=== PATIENT | female | born 1955 | race Caucasian/White ===

== ENCOUNTER 2017-03-17 18:46 | Emergency (ER) | payer OTHER ==
[2017-03-17 18:53] VITALS: RESP 18
--- NOTE | 2017-03-17 20:47 | EDPHY ---
H & P Time Seen by Provider: 03/17/17 20:19 HPI/ROS: CHIEF COMPLAINT: Dental pain, sore throat HISTORY OF PRESENT ILLNESS: This is a 61-year-old female presenting to the emergency department complaining of fatigue fever sore throat. Patient states she had a wisdom tooth extracted on day was also told she had a dental infection but no antibiotics were prescribed. Patient said she was feeling fine throughout the weekend just some dental pain but then early this morning she noticed she was running a fever with sore throat and right ear pain. 400 mg of ibuprofen at 1330 resolve the fever and some mild pain, ibuprofen 400 mg at 1630 which helped resolve some fever and pain. Rechecked temperature 37.5 oral. Patient states biggest complaint is dental pain and sore throat. Patient states also concern for possible dry socket REVIEW OF SYSTEMS: Constitutional: Fever and chills today. No changes in PO intake Eyes: No discharge. No blurred vision ENT: sore throat. Right ear pain. Gum pain right-sided mandibular Cardiovascular: No chest pain, no palpitations. Respiratory: No cough, no shortness of breath. Gastrointestinal: No abdominal pain, no vomiting. Genitourinary: No hematuria. Musculoskeletal: No back pain. Skin: No rashes. Neurological: No headache. Smoking Status: Former smoker Physical Exam: General Appearance: Alert, no distress. Nontoxic appearing. Recheck oral temperature 37.5 Eyes: Normocephalic atraumatic Pupils equal and round no pallor or injection. ENT, Mouth: TMs bilateral non serous middle ear effusion, right TM tender on exam. Tonsillar hypertrophy with exudate. No mastoiditis, no trismus Mucous membranes moist. Right mandibular open socket noted tender on palpation erythemic no abscess noted no drainage. No facial swelling Respiratory: There are no retractions, lungs are clear to auscultation. Cardiovascular: Regular rate and rhythm. Gastrointestinal: Abdomen is soft and nontender, no masses, bowel sounds normal. Neurological: No focal deficits. Answering questions appropriately Skin: Warm and dry, no rashes. Musculoskeletal: Neck supple, anterior cervical lymphadenopathy nontender on palpation Extremities: symmetrical, full range of motion. Psychiatric: Patient is oriented X 3. Acting appropriately Constitutional: Initial Vital Signs Temperature (C) 38.1 C 03/17/17 18:50 Heart Rate 104 H 03/17/17 18:50 Respiratory Rate 18 03/17/17 18:50 Blood Pressure 179/93 H 03/17/17 18:50 O2 Sat (%) 96 03/17/17 18:50 O2 Delivery Mode Room Air Allergies/Adverse Reactions: No Known Allergies Allergy (Verified 10/27/15 21:21) Home Medications: Medication Instructions Recorded Xanax 0.5 08/01/10 Benicar 5 mg (RX) 10/27/15 Amoxicillin/Clavulanate Pot 875 mg PO BID #14 tab 03/17/17 [Augmentin 875 MG TAB (*)] Medical Decision Making ED Course/Re-evaluation: Discussed ED plan of care: Rapid strep sent. 2129: Discussed negative strep. We also discussed starting antibiotics due to the possibility of gum infections status post extraction. Discharge home---> stable, discussed all discharge instructions Differential Diagnosis: Other differential diagnosis considered but not limited to sepsis, strep, otitis media, mastoiditis, and dry socket - Data Points Laboratory Results: 03/17/17 03/17/17 Unknown 20:40 Group A Strep Screen NEGATIVE (NEGATIVE) Group A Strep DNA Pending Medications Given: Discontinued Medications Amoxicillin/Clavulanate Potassium (Augmentin 875mg) 875 mg PO EDNOW ONE PRN Reason: Protocol Stop: 03/17/17 21:46 Last Admin: 03/17/17 21:49 Dose: 875 mg Oxycodone/Acetaminophen (Percocet 5/325) 1 tab PO EDNOW ONE Stop: 03/17/17 20:50 Last Admin: 03/17/17 21:02 Dose: 1 tab Oxycodone/Acetaminophen (Percocet 5/325mg Prepack#4) 1 btl TAKEHOME EDNOW ONE Stop: 03/17/17 21:43 Last Admin: 03/17/17 21:51 Dose: 1 btl Departure - Departure Disposition: Home, Routine, Self-Care Clinical Impression: Pain in gums, Ear pain, right Condition: Good Instructions: Gingivostomatitis (ED) Additional Instructions: 1. Rinse your mouth with warm salt water after every meal, this can help rinse out any food particles left in the open socket from your dental extraction. No popcorn no peanuts it is as these can get lodged in the open socket 2. Follow up with the dental this week as needed. Take all antibiotics as prescribed 3. Ibuprofen 600-800 mg every 6-8 hours 4. Increase fluid intake Referrals: Brooks Lam MD [Primary Care Provider] - As per Instructions Prescriptions: Amoxicillin/Clavulanate Pot [Augmentin 875 MG TAB (*)] 875 mg PO BID #14 tab
[2017-03-17] MEDS ORDERED: OXYCODONE/APAP 5/325 TAB PO ONE (20:49)
[2017-03-17] MEDS ORDERED: OXYCODONE/APAP 5/325MG PREPACK#4 BTL TAKEHOME ONE (21:42)
[2017-03-17] MEDS ORDERED: AMOXICILLIN/CLAVULANATE POT 875/125 MG TAB PO ONE (21:45)
[2017-03-17 21:55] VITALS: BP 156/62; PULSE 90; TEMP 99; O2SAT 95
== END 2017-03-17 21:55 | disposition home or self-care (01) ==
DX: G89.18 Other acute postprocedural pain (principal); K08.89 Other specified disorders of teeth and supporting structures; H92.01 Otalgia, right ear; Z87.891 Personal history of nicotine dependence

== ENCOUNTER 2017-11-23 18:44 | Emergency (ER) | payer OTHER ==
[2017-11-23 18:51] VITALS: PULSE 76; RESP 18; TEMP 97.7; O2SAT 96
[2017-11-23 18:56] VITALS: BP 149/91
--- NOTE | 2017-11-23 19:04 | EDPHY ---
General Time Seen by Provider: 11/23/17 19:01 Narrative: CHIEF COMPLAINT: Right ear pain, right neck and shoulder pain HISTORY OF PRESENT ILLNESS: Patient has 2 complaints. The 1st complaint is right ear pain. This has been present for nearly 3 months intermittently. It does wax and wane. It is described as pressure and pain. Occasionally does draining some clear to blood tinged drainage. She does use Q-Tips and sometimes Angel pins to clean the right ear. She does not swim since last summer. She has occasional headache with this. She has never had any tinnitus or hearing loss. She also has right shoulder neck pain that has been intermittent as well. She feels that it may be separate but she cannot tell. She has been seen by primary care physician for both without a formal diagnosis. She has an MRI of the shoulder and neck that has been ordered and awaiting insurance for this. She has no neck pain or stiffness. No fever chills. No altered mentation per spouse at bedside. No other associated complaints or modifying factors. REVIEW OF SYSTEMS: Ten systems reviewed and are negative unless otherwise noted in the HPI PCP: Dr. Lam SPECIALISTS: Dr. Schaeffer PAST MEDICAL HISTORY: Hypertension, anxiety PAST SURGICAL HISTORY: No recent surgeries SOCIAL HISTORY: Nonsmoker. Occasional alcohol use. No drug use. 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 EOMs intact symmetrically ENT, Mouth: Mucous membranes moist. Uvula midline. Airway is widely patent. The left EAC and TM are unremarkable. The right EAC is edematous with excoriation. The right TM is intact with no perforation, erythema or petechiae. There is no fluid collection behind the right TM. There is no erythema or edema of the right mastoid bone. There is no tenderness of the right mastoid. There is pain with movement of the right pinna. Neck: Normal inspection, supple, soft tissue tenderness of the right trapezius only. There is no crepitus or deformity. No meningeal signs. No bony tenderness. Respiratory: Lungs are clear to auscultation. No wheezing, rhonchi or crackles Cardiovascular: Regular rate and rhythm. No murmur Back: No midline tenderness. Neurological: GCS 15. A&O, nonfocal, normal gait Skin: Warm and dry, no rash. No petechiae purpura. No cellulitis. Extremities: Nontender, no pedal edema Psychiatric: Mood and affect normal DIFFERENTIAL DIAGNOSES: Including but not limited to otitis externa, otitis media, Meniere's disease, rotator cuff tendinitis, rotator tear MDM: 7:15 p.m. Right otitis externa with no otitis media. The ear drum is intact in the perforation. There is no petechiae or evidence of cholesteatoma. She has no tinnitus. She has no hearing loss. There is no evidence of mastoiditis. I feel this is likely repeat traumatic otitis externa from instrumentation. She has a secondary complaint of right shoulder pain that appears to be rotator cuff injury. She is neuro intact from this with no bony tenderness. She has had an x-ray already as an MRI pending. I will treat her with muscle relaxation for this. Also discussed due to immediately stop use of Q-tips and to use Debrox or warm water only. 7:30 p.m. I have re-evaluated the patient to discuss the medication again. She will be given a dose of Valium here with 3 more to take home to use once every 8 hr as needed. He will be prescribed Ciprodex to be used in the right ear, 4 drops twice daily. I provided the on-call ENT physician Dr. Saenz. You should contact her primary care physician tomorrow morning to discuss further care in the possibility of needing to see the ENT physician. You should also contact her established orthopedist Dr. Schaeffer to discuss the right shoulder pain and complete your MRI referral. He should return to the emergency department for any hearing loss, ringing of the ears, neck stiffness, fever or persistent headache. At this time she is discharged home stable condition in agreement with this plan. SUPERVISION: Patient was independently examined, but I discussed the case with my secondary supervising physician Dr. Duffy - History Smoking Status: Former smoker - Objective Vital Signs: Initial Vital Signs Temperature (C) 97.7 F 11/23/17 18:47 Heart Rate 76 11/23/17 18:47 Respiratory Rate 18 11/23/17 18:47 Blood Pressure 149/91 H 11/23/17 18:47 O2 Sat (%) 96 11/23/17 18:47 O2 Delivery Mode Room Air Allergies/Adverse Reactions: No Known Allergies Allergy (Verified 10/27/15 21:21) Home Medications: Medication Instructions Recorded Xanax 0.5 08/01/10 Benicar 5 mg (RX) 10/27/15 Ciprofloxacin/Dexamethasone 4 drops RTEAR BID #1 bottle 11/23/17 [Ciprodex (RX)] Medications Given: Discontinued Medications Ciprofloxacin/Dexamethasone (Ciprodex) 4 drops RTEAR BID JIMMY Stop: 05/22/18 20:59 Last Admin: 11/23/17 19:48 Dose: 1 drop Diazepam (Valium 5 Mg Prepack#4) 1 btl TAKEHOME EDNOW ONE Stop: 11/23/17 19:20 Last Admin: 11/23/17 19:34 Dose: 1 btl Departure - Departure Disposition: Home, Routine, Self-Care Clinical Impression: Rotator cuff syndrome of right shoulder Otitis externa of right ear Qualifiers: Otitis externa type: unspecified type Chronicity: acute Qualified Code(s): H60.501 - Unspecified acute noninfective otitis externa, right ear Condition: Good Instructions: Diazepam (By mouth), Antibiotic/Anti-inflammatory Combinations ( Into the ear), Rotator Cuff Injury (ED), Otitis Externa (ED), Rotator Cuff Tendinitis (ED) Additional Instructions: 1. Ciprodex ear drops as prescribed twice daily into the right ear for 7-10 days 2. Do not insert anything into her right ear canal 3. You may use [id number] Debrox as instructed on the box as needed 4. You may have a rotator cuff injury. You should follow up with your established orthopedist Dr. Schaeffer to continue with your plan of MRI. 5. You may take ibuprofen or Aleve [id number] for the right ear pain 6. You have been given 1 dose of Valium 5 mg by mouth here. This should take the place of your previous muscle relaxant. He may take this by mouth every 8 hr as needed. Do not take it in conjunction with any muscle relaxant, alcohol or narcotic. 7. ED precautions as discussed Referrals: Brooks Lam MD [Medical Doctor] - As per Instructions Oneyda Schaeffer MD [Medical Doctor] - As per Instructions Pan Plummre MD [Medical Doctor] - As per Instructions Prescriptions: Ciprofloxacin/Dexamethasone [Ciprodex (RX)] 4 drops RTEAR BID #1 bottle
[2017-11-23] MEDS ORDERED: DIAZEPAM 5 MG PREPACK#4 BTL TAKEHOME ONE (19:19)
[2017-11-23] MEDS ORDERED: CIPROFLOXACIN HCL/DEXAMETH 7.5 ML OTIC DROPS RTEAR SCH (21:00)
== END 2017-11-23 19:49 | disposition home or self-care (01) ==
DX: H60.501 Unspecified acute noninfective otitis externa, right ear (principal); M75.101 Unspecified rotator cuff tear or rupture of right shoulder, not specified as traumatic; I10 Essential (primary) hypertension; Z87.891 Personal history of nicotine dependence

== ENCOUNTER → 2017-12-05 | Outpatient (CLI) | payer OTHER | LOC: FIMAGING 18:42 | PROVIDERS: ATTEND Orthopaedic Surgery | DX: S46.911A Strain of unspecified muscle, fascia and tendon at shoulder and upper arm level, right arm, initial encounter (principal); M75.81 Other shoulder lesions, right shoulder ==

== ENCOUNTER 2018-01-27 05:38 | Observation (INO) | payer OTHER ==
--- NOTE | 2018-01-25 15:57 | GHP ---
[f rep st] HISTORY AND PHYSICAL DATE OF ADMISSION: 01/27/2018 COMPLAINT: Right shoulder pain. HISTORY OF PRESENT ILLNESS: There is a 62-year-old female who developed pain into her right shoulder that has slowly gotten worse with use and with time. She is having difficulty lifting heavy objects . She has tried anti-inflammatories, stretching, physical therapy, and massage therapy without effec t. MRI revealed a rotator cuff tear, impingement anatomy, and positive biceps tendinopathy. She wis hed to have surgery in order to resolve the problem. ALLERGIES: She lists no drug allergies. CURRENT MEDICATIONS: Alprazolam, hydrochlorothiazide, olmesartan, paroxetine. MEDICAL PROBLEMS: Include high blood pressure. PAST SURGICAL HISTORY: She has no prior surgeries. SOCIAL HISTORY: She is a former smoker. Social drinker. PHYSICAL EXAMINATION: HEENT: Pupils are equal, round, and reactive to light. LUNGS: Clear to ausc ultation. HEART: Regular rate and rhythm. ABDOMEN: Soft and nontender. EXTREMITIES: The right s houlder reveals decreased range of motion, weakness to external rotation and supraspinatus testing. She has tenderness in bicipital groove, the glenohumeral joint. ASSESSMENT/PLAN: The patient is status post right shoulder impingement syndrome with rotator cuff te ar, possible biceps tendinopathy, and labral tear. The plan is to take her to the operating room to undergo a right shoulder scope with rotator cuff repair, subacromial decompression, labral debridemen t, and possible biceps tenodesis. /[id number]/MODL
--- NOTE | 2018-01-27 06:50 | PDANEPAE ---
ANE Past Medical History - Cardiovascular History Hx Hypertension: Yes Hx Arrhythmias: No Hx Chest Pain: No Hx Coronary Artery / Peripheral Vascular Disease: No Hx CHF / Valvular Disease: No Hx Palpitations: No Cardiovascular History Comment: pcp monitors bp meds. hyperlipidemia - Pulmonary History Hx COPD: No Hx Asthma/Reactive Airway Disease: No Hx Recent Upper Respiratory Infection: No Hx Oxygen in Use at Home: No Hx Sleep Apnea: No Sleep Apnea Screening Result - Last Documented: Positive Pulmonary History Comment: mustapha triggers - Neurologic History Hx Cerebrovascular Accident: No Hx Seizures: Yes Hx Dementia: No Neurologic History Comment: when she was younger but no medications, children had seizures as well - Endocrine History Hx Diabetes: No Hypothyroid: No Hyperthyroid: No Obesity: yes, severe - Renal History Hx Renal Disorders: No - Liver History Hx Hepatic Disorders: No - Neurological & Psychiatric Hx Hx Neurological and Psychiatric Disorders: Yes Neurological / Psychiatric History Comment: anxiety - Cancer History Hx Cancer: No - Congenital Disorder History Hx Congenital Disorders: No - GI History GERD: mild Hx Gastrointestinal Disorders: Yes Gastrointestinal History Comment: occ reflux depending on foods - Other Health History Other Health History: wears glasses - Chronic Pain History Chronic Pain: Yes (bilateral shoulders) - Surgical History Prior Surgeries: colonoscopy. tavares 1993 ANE Review of Systems Review of Systems: - Exercise capacity METS (RN): 4 METS ANE Patient History - Allergies Allergies/Adverse Reactions: No Known Allergies Allergy (Verified 01/16/18 13:01) - Home Medications Home Medications: Xanax 08/01/10 [Last Taken Unknown] Benicar 5 mg (RX) 10/27/15 [Last Taken Unknown] Hydrochlorothiazide 01/16/18 [Last Taken Unknown] PARoxetine HCL 01/16/18 [Last Taken Unknown] Vitamin D3 01/16/18 [Last Taken Unknown] - Anes Hx Anes Hx: no prior problems - Smoking Hx Smoking Status: Former smoker - Alcohol Use Alcohol Use: Rarely - Family Anes Hx Family Anes Hx: neg - N/A Family Hx Anesthesia Complications: sister gets really agitated and feels like she is choking ANE Labs/Vital Signs - Vital Signs Height: 157.48 cm Weight: 97.522 kg ANE Physical Exam - Airway Neck exam: FROM, short neck Mallampati Score: Class 3 Mouth exam: normal dental/mouth exam - Pulmonary Pulmonary: no respiratory distress, no rales or rhonchi, clear to auscultation - Cardiovascular Cardiovascular: regular rate and rhythym, no murmur, rub, or gallop - ASA Status ASA Status: III ANE Anesthesia Plan Anesthesia Plan: general endotracheal anesthesia Regional Anesthesia: supraclavicular BP NB Total IV Anesthesia: No
[2018-01-27] MEDS ORDERED: LIDOCAINE 1% 2 ML INJ ID PRN (06:54)
[2018-01-27] MEDS ORDERED: LR 1,000 ML IV ONE (06:54)
[2018-01-27] MEDS ORDERED: MIDAZOLAM 2 MG/2 ML VIAL IVP ONE (06:54)
[2018-01-27] MEDS ORDERED: ACETAMINOPHEN 500 MG TAB PO ONE (06:55)
[2018-01-27] MEDS ORDERED: PREGABALIN 150 MG CAP PO ONE (06:55)
[2018-01-27] MEDS ORDERED: ceFAZolin 2 GM/SWFI 2 GM/20 ML SYR IVP ONE (06:55)
[2018-01-27] MEDS ORDERED: fentaNYL 100 MCG/2 ML INJ ONE ×2 (07:06→08:38)
[2018-01-27] MEDS ORDERED: PROPOFOL 200 MG/20 ML VIAL ONE (07:07)
[2018-01-27] MEDS ORDERED: ROCURONIUM 50 MG/5 ML VIAL ONE (07:08)
[2018-01-27] MEDS ORDERED: ONDANSETRON 4 MG/2 ML VIAL ONE (07:08)
[2018-01-27] MEDS ORDERED: DEXAMETHASONE 4 MG/ML VIAL ONE (07:08)
[2018-01-27] MEDS ORDERED: ROPIVACAINE HCL 150 MG/30 ML INJ ONE (07:09)
[2018-01-27] MEDS ORDERED: LIDOCAINE 2% 5 ML SDV ONE (07:09)
[2018-01-27] MEDS ORDERED: EPINEPHrine 1 MG/ML INJ ONE (07:11)
[2018-01-27] MEDS ORDERED: BUPIVACAINE 0.5% 30 ML SDV ONE (07:11)
[2018-01-27] MEDS ORDERED: THROMBIN (BOVINE) 5,000 UNIT VIAL TP ONE (07:29)
[2018-01-27] MEDS ORDERED: CALCIUM CHLORIDE 1 GM/10 ML INJ ONE (07:29)
[2018-01-27] MEDS ORDERED: ceFAZolin 2 GM/DEXTROSE 100 ML IV ONE (07:30)
[2018-01-27] MEDS ORDERED: ePHEDrine SULFATE 25 MG/5 ML SYR ONE (07:55)
[2018-01-27] MEDS ORDERED: PHENYLEPHRINE HCL 100 MCG/ML SYR ONE (08:00)
[2018-01-27] MEDS ORDERED: NALOXONE HCL 0.4 MG/ML INJ IVP PRN (08:32)
[2018-01-27] MEDS ORDERED: PROMETHAZINE HCL 25 MG/ML INJ IVP PRN (08:32)
[2018-01-27] MEDS ORDERED: LR 500 ML IV PRN (08:32)
[2018-01-27] MEDS ORDERED: ACETAMINOPHEN 500 MG TAB PO PRN (08:32)
[2018-01-27] MEDS ORDERED: fentaNYL 100 MCG/2 ML INJ IVP PRN (08:32)
[2018-01-27] MEDS ORDERED: oxyCODONE IR 5 MG TAB PO PRN (08:32)
[2018-01-27] MEDS ORDERED: PHENYLEPHRINE HCL 100 MCG/ML SYR IVP PRN (08:32)
[2018-01-27] MEDS ORDERED: HYDROCODONE/APAP 5/325 TAB PO PRN (08:32)
[2018-01-27] MEDS ORDERED: epHEDrine SULFATE 10 MG/ML SYR IVP PRN (08:32)
[2018-01-27] MEDS ORDERED: ONDANSETRON 4 MG/2 ML VIAL IVP PRN (08:32)
[2018-01-27] MEDS ORDERED: KETOROLAC 30 MG/1 ML SDV ONE (09:25)
[2018-01-27] MEDS ORDERED: NEOSTIGMINE METHYLSULFATE 10 MG/10 ML MDV ONE (09:41)
[2018-01-27] MEDS ORDERED: GLYCOPYRROLATE 0.2 MG/1 ML VIAL ONE ×2 (09:41)
--- NOTE | 2018-01-27 09:52 | POSTOPPROG ---
Post Op Note Date of Operation: 01/27/18 Surgeon: Oneyda Schaeffer Guide Travel: [employer]train Anesthesia: LMA, Other (Specify) Pre-op Diagnosis: r shoulder impingem,ent with RCR and bicep tendinopathy Procedure: open r bicep tenodesis with r shoulder scope with rcr/sad/dce/ debridement Inf/Abcess present in the surg proc area at time of surgery?: No Depth: Deep Incisional (Fascial) EBL: 50-100
--- NOTE | 2018-01-27 10:08 | POSTANESTH ---
Post Anesthetic Evaluation Cardiovascular Status: Normal, Stable Respiratory Status: Tx Decrease in SpO2 Level of Consciousness/Mental Status: Can Participate in Eval, Mildly Sleepy, Arousable Pain Control: Adequate, Prn Tx Ordered Nausea/Vomiting Control: Adequate, Prn Tx Ordered Complications Possibly Related to Anesthesia: None Noted
--- NOTE | 2018-01-27 10:39 | GOP ---
[f rep st] OPERATIVE REPORT DATE OF OPERATION: 01/27/2018 SURGEON: Oneyda Schaeffer MD POLICE INSPECTOR: GIDEON GramajoA, LSA, whose presence was medically necessary. ANESTHESIA: By LMA with a scalene nerve block per surgeon's request. PREOPERATIVE DIAGNOSIS: Right shoulder impingement syndrome with rotator cuff tear and biceps tendin opathy with labral tear. POSTOPERATIVE DIAGNOSIS: Right shoulder impingement syndrome with rotator cuff tear and biceps tendi nopathy with labral tear. PROCEDURE PERFORMED: Open right biceps tenodesis with right shoulder scope with rotator cuff repair x2 subacromial decompression, debridement of rotator cuff, biceps stump and labrum. FINDINGS: INDICATIONS: This is a 62-year-old female, who developed pain and weakness into the right shoulder w orsening with use and with time. MRI exam revealed a rotator cuff tear as well as significant anteri or acromial curve and labral tearing as well as biceps tendinopathy. She wishes to have surgery in o rder to resolve the problem. DESCRIPTION OF PROCEDURE: The patient was brought to the operating room after the right side had bee n identified as correct side by the patient and physician. Once in the operating room she was given a scalene block on the right side and then placed under general anesthesia using an LMA. Once asleep , she was placed in a beach chair position with the right upper extremity sterilely prepped and drape d in the usual fashion using a GSI solution. Once prepped and draped, incision was made on the poste rolateral corner of the acromion with the camera introduced without difficulty. Inspection of the alice int revealed significant tearing of the labrum with a large rotator cuff as well as fraying and split ting of the biceps tendon. It was therefore decided to do an open biceps tenodesis. Camera was gabi jam. Attention was turned to the anterior portion of the shoulder. A 5 cm incision was made directl y over the area of the biceps sheath with sharp dissection carried down through the skin and subcutan eous layers, with bleeding controlled using electrocautery. The deltopectoral interval was found wit h the deltoid retracted laterally. Dissection was carried down onto the biceps sheath which was inci sed. The biceps tendon was retracted. #2 FiberWire was woven into the biceps and was cut short. It was measured to be 6 mm in diameter. Therefore, a guidewire was placed within the bicipital sheath. A 7 mm hole was drilled and a 9 mm cayenne biceps anchor was screwed into place securing the biceps . A camera was reintroduced in the posterolateral corner of the shoulder with an anterior portal mad e superolateral to the coracoid process using in to out technique. A 6 x 75 mm threaded cannula was placed through the anterior portal and a 3.5 mm smooth shaver was used to debride the remainder of th e biceps stump within the shoulder, removed the labral tear of the anterior superior and posterior po rtions of the labrum and the frayed portions of the rotator cuff of the ceiling. Once completed all instruments were removed from the glenohumeral joint using the same portal sites, reintroduced in the subacromial space. A third incision was made 2 cm lateral to the acromial process in line with the posterior cortex of the clavicle with the camera switched to the lateral portal. Alternating using a rthroscopic Bovie tip a shaver was used to remove the abundant amount of soft tissue within the under surface of the acromion. She was noted to have a large anterior acromial curve and acromionizer bur was brought through the anterior portal and used to remove that curve until achieving a flat ceiling. Attention was turned to the distal clavicle which was also noted to have a sharp and inferior spur and this was also removed using a combination of shaver and bur. Once completed, the camera switched back to the posterior portal and a combination of shaver and bur was used to remove soft tissue and eburnate the bone around the footprint of the greater tuberosity. Two sets of #2 FiberWire were wove n into the anterior posterior portion of the rotator cuff. They were pulled over the area of the ebu rnated bone associated with the footprint and reattached onto the greater tuberosity using a 4.5 mm c maria fernandaenne anchors x2. Once completed, all instruments were removed from the shoulder with 30 cc of Scotty oscar infused into the subacromial space. The 3 portal sites were closed using 3-0 nylon suture in a opsazd-lc-sqgaz type stitch. Plasma gel was placed within the subacromial space. The bicipital woun d had been closed using combination of 2-0 Vicryl, and 3-0 V lock. The bicipital wound was dressed w jose Steri-Strips and all the wounds were then dressed with Xeroform, 4 x 4, and Tegaderm. She was co mpletely undraped in the operating room, had a shoulder immobilizer placed on the right upper extremi ty. She was then woken up, extubated, transferred onto a stretcher, and sent to recovery room in [facility]. /[id number]/MODL
[2018-01-27] MEDS: ONDANSETRON 4 MG/2 ML VIAL IVP PRN ×2 (11:05→17:23)
[2018-01-27] MEDS: OXYCODONE/APAP 5/325 TAB PO PRN ×3 (11:07→23:42)
--- NOTE | 2018-01-27 11:40 | PDHPUP ---
History & Physical Update H&P update statement: This history and physical update is based on an assessment of the patient which was completed after admission or registration (within 24 hours), but prior to the surgery/procedure. H&P update: H&P reviewed & patient examined, no change in patient's condition since H&P completed
[2018-01-27] MEDS ORDERED: PROMETHAZINE HCL 25 MG/ML INJ ONE (11:42)
[2018-01-27] MEDS ORDERED: TEMAZEPAM 15 MG CAP PO PRN (15:59)
[2018-01-27] MEDS: ceFAZolin 2 GM/DEXTROSE 100 ML IV SCH ×2 (17:47→23:42)
[2018-01-28] MEDS: OXYCODONE/APAP 5/325 TAB PO PRN ×3 (02:53→09:22)
[2018-01-28] MEDS: ONDANSETRON 4 MG/2 ML VIAL IVP PRN (05:58)
--- NOTE | 2018-01-28 09:08 | ASMTCMCOM ---
CM Note CM Note Notes: Reviewed patient's chart/progress notes. Discussed case with primary RN. Anticipate patient will be able to discharge home today with no CM needs. CM available should something change. Plan: Independent Date Signed: 01/28/2018 09:07 AM Electronically Signed By:Estephania Rodriguez RN
[2018-01-28] MEDS ORDERED: POLYETHYLENE GLYCOL 3350 17 GM PKT PO PRN (10:31)
[2018-01-28] MEDS: KETOROLAC 30 MG/1 ML SDV IVP SCH ×3 (11:07→23:41)
[2018-01-28] MEDS: HYDROCODONE/APAP 10/325 TAB PO PRN ×2 (13:04→21:11)
[2018-01-28] MEDS: SENNOSIDES/DOCUSATE SODIUM TAB PO SCH ×2 (13:05→21:10)
[2018-01-28] MEDS ORDERED: ALPRAZolam 0.5 MG TAB PO SCH (21:00)
[2018-01-29] MEDS: HYDROCODONE/APAP 10/325 TAB PO PRN (03:59)
[2018-01-29] MEDS: KETOROLAC 30 MG/1 ML SDV IVP SCH (06:10)
[2018-01-29 08:22] VITALS: BP 123/75
[2018-01-29] MEDS: SENNOSIDES/DOCUSATE SODIUM TAB PO SCH (08:24)
--- NOTE | 2018-01-29 13:54 | ASMTCMCOM ---
CM Note CM Note Notes: Pt medically stable for d/c, no CM d/c needs idenified. Date Signed: 01/29/2018 01:54 PM Electronically Signed By:SAIDA Proctor
--- NOTE | 2018-02-03 10:02 | GDS ---
[f rep st] DISCHARGE SUMMARY CURRENT COMPLAINT: Right shoulder pain and weakness. HISTORY OF PRESENT ILLNESS: This is a 62-year-old female, who developed pain and weakness in the rig ht shoulder that was worsening with use and with time. MRI exam revealed a rotator cuff tear as well as an anterior acromial curve and labral tearing. She wishes to have surgery in order to resolve th e problem. HOSPITAL COURSE: Patient was brought to the operating room on the day of admission, where she underw ent open right biceps tenodesis with right shoulder scope with rotator cuff repair x2, SAD with debri jessica of rotator cuff, biceps stump and labrum. Postoperatively patient had significant issues with pain control. Once her pain was able to be kept under control she was able to be discharged to home on 01/29/2018 with instructions to keep the shoulder immobilizer in place, take pain medication as n eeded and follow up in the office for further evaluation. She was given a discharge diagnosis of rig ht shoulder impingement syndrome with rotator cuff tear and biceps tendinopathy. /[id number]/MODL
== END 2018-01-29 12:55 | disposition home or self-care (01) ==
LOC: FSGY 05:38 → F3N 16:00
PROVIDERS: ADMIT Orthopaedic Surgery; ATTEND Orthopaedic Surgery
PROC: 0LQ14ZZ Repair Right Shoulder Tendon, Percutaneous Endoscopic Approach (ICD-10-PCS; principal; 2018-01-27 07:15)
PROC: 0LM10ZZ Reattachment of Right Shoulder Tendon, Open Approach (ICD-10-PCS; principal; 2018-01-27 07:15)
PROC: 0MN14ZZ Release Right Shoulder Bursa and Ligament, Percutaneous Endoscopic Approach (ICD-10-PCS; principal; 2018-01-27 07:15)
DX: M75.121 Complete rotator cuff tear or rupture of right shoulder, not specified as traumatic (principal); M75.41 Impingement syndrome of right shoulder; M75.21 Bicipital tendinitis, right shoulder
CPT/HCPCS: 23430; 29826; 29827; G0378; C1713; J0171; J0690; J1100; J1885; J2250; J2270; J2370; J2405; J2550; J2704; J2795; J3010